=== PATIENT | male | born 1965 | race Caucasian/White ===

== ENCOUNTER 2020-07-26 07:43 | Inpatient (IN) | payer BC, OTHER ==
[2020-07-26] MEDS ORDERED: Fentanyl 100 MCG/2 ML VIAL ONE ×4 (08:19→18:19)
--- NOTE | 2020-07-26 08:39 | RAD ---
XR Pelvis AP STANDARD HISTORY: Fall, right hip pain FINDINGS: There is a fracture involving the neck of the right femur with associated foreshortening.
--- NOTE | 2020-07-26 08:40 | RAD ---
XR Hip Rt 2-3 View HISTORY: Fall, right hip pain FINDINGS: There is a fracture involving the neck of the right femur with associated foreshortening.
[2020-07-26] MEDS ORDERED: Ondansetron PF 4 MG/2 ML Vial ONE ×2 (08:52→11:24)
[2020-07-26 08:54] LABS: #Basophils 0.1 thou/uL (0.0-0.2); #Eosinphils 0.1 thou/uL (0.0-0.7); #Lymphocytes 1.2 thou/uL (1.20-3.40); #Monocytes 0.6 thou/uL (0.11-0.59); %Basophils 0.4 % (0.0-1.0); %Eosinophils 0.4 % (0.0-10.0); %Lymphocytes 8.1 % (21.0-51.0); %Monocytes 4.2 % (0.0-10.0); %Neutrophils 86.9 % (42.0-75.0); Hemoglobin 16.2 g/dL (14.0-18.0); Mean Corpuscular HGB CONC 33.1 g/dL (32.0-36.0); Mean Corpuscular Hemoglobin 33.4 pg (27.0-31.0); Mean Platelet Volume 7.1 fL (7.4-10.4); Platelet Count 244 thou/uL (130-400); RBC Distribution Width 12.3 % (11.5-14.5); Red Blood Cell (RBC) Count 4.86 mill/uL (4.70-6.10)
[2020-07-26 09:01] LABS: INR-International Normal Ratio 1.1; PTT 25.6 sec (22.9-36.1); Prothrombin Time 13.9 sec (12.0-14.7)
[2020-07-26] MEDS ORDERED: Vancomycin 1 GM/200 ML BAG ONE (09:06)
[2020-07-26 09:12] LABS: Acetaminophen Less than 6.0 mcg/mL (10.0-30.0); Alcohol 164 mg/dL (Less than 10); CK (CPK) 306 U/L (30-200); Salicylate Less than 8.0 mg/dL (15.0-30.0)
[2020-07-26 09:19] LABS: ALT (SGPT) 27 U/L (8-55); AST (SGOT) 20 U/L (5-34); Albumin 4.2 g/dL (3.5-5.0); Alkaline Phosphatase 76 U/L (40-110); Anion Gap 16 mmol/L (10-20); BUN (Urea Nitrogen) 11 mg/dL (8.4-25.7); Bilirubin, Total 0.2 mg/dL (0.2-1.2); Calc. Creatinine Clearance 0 mL/min (70-130); Calcium 8.3 mg/dL (7.8-10.44); Carbon Dioxide 20 mmol/L (22-29); Chloride 104 mmol/L (98-107); Globulin 2.5 g/dL (2.4-3.5); Glucose 139 mg/dL (70-105); Potassium 4.1 mmol/L (3.5-5.1); Protein, Total 6.7 g/dL (6.0-8.3); Sodium 136 mmol/L (136-145)
--- NOTE | 2020-07-26 09:30 | CON ---
DATE OF CONSULTATION: 07/26/2020 This is Leonie Thomas PA-C dictating a report for Jeff Heredia MD. REQUESTING PHYSICIAN: Trauma Services. CONSULTING PHYSICIAN: Dr. Jeff Heredia. REASON FOR CONSULTATION: Right hip fracture. HISTORY OF PRESENT ILLNESS: This is a 55-year-old male, who states he was drinking heavily last night after an 8-day stretch of working when he stumbled and fell at home, landing onto his right side. He was unable to ambulate. He was brought to our facility for further workup and evaluation. X-ray showed a displaced right femoral neck fracture. We have been consulted for this reason. Currently at bedside, the patient states that he is a normally very active individual. He works at a power plant. He denies any other injuries at the time of this fall. No head injury. No loss of consciousness. No numbness or tingling. Of note, he does state that he had a boil that appeared on his right thigh a couple of days ago. He has been squeezing it. He has not seen a physician for this and has not been on any antibiotics. PAST MEDICAL HISTORY: The patient denies. PAST SURGICAL HISTORY: Lumbar surgery with Dr. Santillan approximately 2 years ago. SOCIAL HISTORY: The patient lives at home with his . He is a 2 to 3 beers per day drinker and half a pack to a pack per day smoker for as long as he can remember. He denies any drug use. He ambulates independently and leads an active lifestyle. FAMILY HISTORY: Reviewed and noncontributory. REVIEW OF SYSTEMS: Ten-point review of systems conducted and otherwise negative except for stated above. PHYSICAL EXAMINATION: VITAL SIGNS: Shows current vital signs including blood pressure 122/79, pulse of 86, respiratory rate of 17, temperature of 97.9, O2 saturation of 95% on room air. GENERAL: The patient is awake and alert. He answers all questions appropriately. He is comfortable at this time, lying on stretcher in the ER. HEENT: Head is normocephalic and atraumatic. He does have poor dentition. NECK: Supple. Trachea midline. Breathing is nonlabored. EXTREMITIES: Evaluation of his lower extremities shows his right lower extremity be held in extension at the hip and the knee. He is able to move his toes. He has a palpable dorsalis pedis pulse. There is a skin abscess noted on the lateral thigh measuring approximately 15 mm x 15 mm with purulent drainage and surrounding erythema. This is covered by a Band-Aid. Left lower extremity is held in flexion at the hip and flexion at the knee. He is able to actively move both these joints. Distal neurovascular status intact. Evaluation of bilateral upper extremity shows an atraumatic exam of bilateral upper extremities. DIAGNOSTIC DATA: Radiographic imaging reviewed today including AP pelvis as well as right hip x-rays shows evidence of a displaced femoral neck fracture. ASSESSMENT: Right displaced femoral neck fracture. PLAN: At this time, the patient states he has been n.p.o. since about 4 a.m. when he had his last beer. We would like to ideally operate on him later today. We will see if the operating room allows for this. We will keep him n.p.o. With regard to this skin abscess on his right thigh, there is concern due to its location and the close proximity of what will be our surgical wound. We will plan for I&D today with cultures of this abscess. We will plan to treat him as an inpatient with antibiotics before going forward with surgical hip implants. Risks, benefits, and alternatives of surgery discussed with the patient today. He verbalized understanding and is amenable to this. Job ID: [id number] [facility]
[2020-07-26] MEDS ORDERED: Ketorolac Tromethamine 30 MG/ML VIAL ONE (09:42)
--- NOTE | 2020-07-26 10:42 | HP ---
REQUESTING PHYSICIAN: Dr. Carbajal. ATTENDING SURGEON: Dr. Tiwari. CONSULTATIONS: Orthopedics, Dr. Heredia. HISTORY OF PRESENT ILLNESS: The patient is a 55-year-old man who was brought by ground EMS to the emergency department after having a ground level fall approximately 4:00 a.m. this morning. He had been drinking and fell. He believes it may have been as high as 5 feet, but he is unsure. He denies head injury or loss of consciousness. EMS and the ER report that his verified that he did not lose consciousness, only that he had severe right hip pain. The patient was brought to the emergency department, underwent evaluation and examination and was noted to have a right intertrochanteric femur fracture. Upon secondary examination with Orthopedics, it was noted that the patient has a cutaneous abscess on his right proximal thigh very close to his future surgical site. After discussion with Dr. Heredia, he decided that they will take the patient for formal irrigation and debridement in the operating room today, begin antibiotics and when this site looks good, they will proceed with his orthopedic procedure. ALLERGIES: NONE. CURRENT MEDICATIONS: None. PAST MEDICAL HISTORY: Gastroesophageal reflux disease and hyperlipidemia. PAST SURGICAL HISTORY: "Back surgery." SOCIAL HISTORY: The patient lives at home with family. He smokes approximately half a pack of cigarettes per day. Denies drug use and drinks every day including today he drank approximately 18 beers. REVIEW OF SYSTEMS: A 10-point review of systems is negative as otherwise stated. PHYSICAL EXAMINATION: VITAL SIGNS: Blood pressure 129/87, heart rate 98, respirations 24, oxygen saturation is 95% on room air, and temperature is 97.9. GENERAL: The patient is resting comfortably in bed. He was asleep when we entered the room. He was examined at the same time with Orthopedics. He easily awakened to verbal stimuli. Follows all commands. Mansfield Coma Scale is 14, -1 for eye opening. HEENT: Head is normocephalic and atraumatic. Eyes, extraocular motion is intact. PERRLA bilaterally. Ears are atraumatic without discharge. Nose is atraumatic without discharge. Oropharynx is clear. NECK: Nontender. Trachea is midline with no JVD. CHEST: Clear to auscultation with good inspiratory and expiratory effort. HEART: Regular rate and rhythm. ABDOMEN: Soft, flat, and nontender with active bowel sounds. Pelvis is stable with tenderness to palpation to the right hip consistent with his fracture. EXTREMITIES: Neurovascularly intact x4. Right lower extremity is held slightly flexed with inward rotation. The right lateral thigh has approximately 10 cm circular area of erythema with a central necrotic area with some scant purulent drainage noted. BACK: By report is atraumatic and nontender. LABORATORY FINDINGS: White blood cell count 15.0, hemoglobin 16.2, hematocrit 49.1, platelets 244. Sodium 136, potassium 4.1, chloride 104, CO2 of 20, BUN 11, creatinine 0.88, glucose 139, CK 306. Troponin less than 0.010. LFTs are unremarkable. INR is 1.1. Blood alcohol is 164. RADIOGRAPHIC REPORTS: AP pelvis shows a femoral neck fracture on the right. Views of the right hip again demonstrate a femoral neck fracture with associated foreshortening. ASSESSMENT AND PLAN: 1. Status post mechanical fall. 2. Acute alcohol intoxication. 3. Right femoral neck fracture. 4. Right thigh cutaneous abscess. 5. Pain secondary to above. Plan will be to admit the patient to the surgical floor. He will be kept n.p.o. for his irrigation and debridement today. Per discussion with Dr. Heredia, we will hold his antibiotics at this time. The patient did receive 1 g of Ancef this morning. Postoperatively, we will follow his culture results. We have also had blood cultures drawn in the emergency department. We will do pain control, pulmonary toilet, gastritis and mechanical VTE prophylaxis. We will begin physical therapy once ortho clears him to ambulate, which is most likely going to be postoperative from his hemiarthroplasty. The evaluation, examination, laboratory, and radiographic signs discussed with Dr. Tiwari at the time of this dictation. Job ID: [id number]
[2020-07-26] MEDS ORDERED: Dexamethasone 20 MG/5 ML VIAL ONE (11:24)
[2020-07-26] MEDS ORDERED: ePHEDrine 50 MG/ML VIAL ONE (11:24)
[2020-07-26] MEDS ORDERED: PROPOFOL 200 MG/20 ML VIAL ONE (11:24)
[2020-07-26] MEDS ORDERED: Lidocaine 1% PF 5 ML VIAL ONE (11:24)
[2020-07-26 11:25] LABS: SARS-CoV-2 NAA Rapid Test Not Detected (NotDetected)
[2020-07-26] MEDS ORDERED: Ondansetron ODT 4 MG TAB SL PRN (11:30)
[2020-07-26] MEDS ORDERED: Ondansetron PF 4 MG/2 ML Vial IVP PRN ×2 (11:30→12:49)
[2020-07-26] MEDS ORDERED: Ondansetron ODT 4 MG TAB PO PRN (12:49)
[2020-07-26] MEDS ORDERED: Cyclobenzaprine 10 MG TAB PO PRN (12:49)
[2020-07-26] MEDS ORDERED: Dextrose 5% in Water 1,000 ML IV PRN (12:49)
[2020-07-26] MEDS ORDERED: Promethazine HCl 25 MG/ML VIAL IM PRN ×2 (12:49→18:09)
[2020-07-26] MEDS ORDERED: traMADol HCl 50 MG TAB PO PRN (12:49)
[2020-07-26] MEDS ORDERED: Dextrose 50% Abboject 50 ML SYRINGE SLOW IVP PRN (12:49)
[2020-07-26] MEDS ORDERED: Morphine 2 MG/ML VIAL SLOW IVP PRN (12:49)
[2020-07-26] MEDS ORDERED: Ibuprofen 800 MG TAB PO SCH (12:49)
[2020-07-26] MEDS ORDERED: hydrALAZINE 20 MG/ML VIAL SLOW IVP PRN (12:49)
[2020-07-26] MEDS ORDERED: Famotidine/PF 20 mg/2ml Vial SLOW IVP SCH (13:15)
[2020-07-26] MEDS: Oxazepam 10 MG CAP PO SCH ×2 (13:39→20:44)
[2020-07-26] MEDS: Acetaminophen 500 MG TAB PO SCH ×2 (13:39→18:53)
[2020-07-26] MEDS: Sodium Chloride 0.9% 1,000 ML IV SCH ×2 (13:39→18:55)
[2020-07-26] MEDS ORDERED: CEFAZOLIN 2 GM in Premix Bag 1 BAG IVPB SCH (17:00)
[2020-07-26] MEDS ORDERED: Ondansetron HCl/PF 4 MG/2 ML Vial IVP PRN (18:09)
[2020-07-26] MEDS ORDERED: Promethazine HCl 25 MG/ML VIAL SLOW IVP PRN (18:09)
[2020-07-26] MEDS: Piperacillin/Tazobactam 3.375 GM in Sodium Chloride 0.9% 100 ML IVPB SCH (18:50)
[2020-07-26] MEDS: Vancomycin HCl 750 MG in Sodium Chloride 0.9% 250 ML 250 ML IVPB SCH (20:43)
[2020-07-26] MEDS: Ibuprofen 600 MG TAB PO SCH (20:43)
[2020-07-26] MEDS: Famotidine/PF 20 mg/2ml Vial SLOW IVP SCH (20:43)
[2020-07-26] MEDS ORDERED: Vancomycin HCl 1.5 GM in Sodium Chloride 0.9% 250 ML 300 ML IVPB SCH (21:00)
[2020-07-27] MEDS: Acetaminophen 325 MG TAB PO SCH ×4 (00:30→18:18)
[2020-07-27] MEDS: Piperacillin/Tazobactam 3.375 GM in Sodium Chloride 0.9% 100 ML IVPB SCH ×4 (00:46→18:18)
[2020-07-27] MEDS: Acetaminophen 500 MG TAB PO SCH (00:47)
[2020-07-27] MEDS: traMADol HCl 50 MG TAB PO PRN (02:33)
[2020-07-27 05:11] LABS: #Lymphocytes 1.3 thou/uL (1.20-3.40); #Neutrophils 8.5 thou/uL (1.40-6.50); %Basophils 0.3 % (0.0-1.0); %Eosinophils 0.2 % (0.0-10.0); %Monocytes 9.1 % (0.0-10.0); %Neutrophils 78.3 % (42.0-75.0); Hemoglobin 14.9 g/dL (14.0-18.0); Mean Corpuscular HGB CONC 33.9 g/dL (32.0-36.0); Mean Corpuscular Hemoglobin 34.2 pg (27.0-31.0); Mean Platelet Volume 7.1 fL (7.4-10.4); Platelet Count 217 thou/uL (130-400); RBC Distribution Width 12.3 % (11.5-14.5); Red Blood Cell (RBC) Count 4.38 mill/uL (4.70-6.10); White Blood Cell (WBC) Count 10.8 thou/uL (4.8-10.8)
[2020-07-27 05:34] LABS: Anion Gap 12 mmol/L (10-20); BUN (Urea Nitrogen) 9 mg/dL (8.4-25.7); Calc. Creatinine Clearance 71 mL/min (70-130); Calcium 8.1 mg/dL (7.8-10.44); Carbon Dioxide 21 mmol/L (22-29); Chloride 108 mmol/L (98-107); Glucose 119 mg/dL (70-105); Potassium 4.3 mmol/L (3.5-5.1); Sodium 137 mmol/L (136-145)
[2020-07-27] MEDS: Ibuprofen 600 MG TAB PO SCH ×3 (05:51→20:17)
[2020-07-27] MEDS: Oxazepam 10 MG CAP PO SCH ×2 (05:51→13:11)
[2020-07-27] MEDS: Folic Acid 1 MG TAB PO SCH (08:37)
[2020-07-27] MEDS: Thiamine 100 MG TAB PO SCH (08:37)
[2020-07-27] MEDS: Famotidine/PF 20 mg/2ml Vial SLOW IVP SCH ×2 (08:38→20:17)
[2020-07-27] MEDS: Vancomycin HCl 750 MG in Sodium Chloride 0.9% 250 ML 250 ML IVPB SCH ×2 (09:04→20:17)
--- NOTE | 2020-07-27 10:18 | OP ---
DATE OF PROCEDURE: 07/26/2020 PREOPERATIVE DIAGNOSIS: 1. Right displaced femoral neck fracture. 2. Right lateral thigh subcutaneous abscess. POSTOPERATIVE DIAGNOSES: 1. Right displaced femoral neck fracture. 2. Right lateral thigh subcutaneous abscess. PROCEDURE PERFORMED: Incision and drainage of right lateral thigh abscess. ANESTHESIA: General. ESTIMATED BLOOD LOSS: 5 mL. COMPLICATIONS: None. DRAINS: None. SPECIMEN: Swab x2 as well as tissue sample for Gram stain, culture, and sensitivity. OUTCOME: Satisfactory. INDICATIONS: The patient is a 55-year-old gentleman, who sustained a fall, fracturing his right femoral neck. This fall occurring after alcohol consumption. Upon presentation to the emergency room and workup, he was found to have a displaced subcapital femoral neck fracture consistent with a Garden IV type injury as well as an abscess that was subcutaneous by appearance directly at the level of where the incision would be for stabilization of this femoral neck fracture. Given this abscess and surrounding erythema and the fact that it had not been treated whatsoever, it was felt that the patient could not undergo hardware placement due to the excessively high risk for infection and as such, the patient is now brought to the operating room for incision and drainage to be in treatment of this skin abscess in hopes of allowing us to then proceed with a staged procedure for the femoral neck fracture. Informed consent has been obtained. I believe all questions have been answered. DESCRIPTION OF PROCEDURE: The patient was brought to the operating room and a time-out performed followed by induction of general anesthesia. Next, the patient was positioned in a left lateral decubitus position. A sterile prep and drape were performed in the right lateral thigh. At this time, the patient was found to have an abscess with some purulent material draining from it. This abscess was just distal to the greater trochanter at the lateral aspect of the thigh. Next, a scalp was used to incise this abscess cavity. It did appear to be limited to the subcutaneous fat layer as there was no tracking deeper. Once the abscess cavity was entered, swabs were taken and sent for Gram stain, culture, and sensitivity, and then some tissue from the center of the abscess cavity was also sent for Gram stain, culture, and sensitivity. Next, the scalp was used to incise all of the obviously involved and necrotic skin. This resulted in about a centimeter and a half round area of skin deficit. This extended down into the subcutaneous fat, but not to the level of the fascia. At the completion of this debridement, all nonviable tissue was sharply debrided with scalpel. The wound was then irrigated with 3 L of normal saline using Pulsavac. With completion of this, it was packed with a damp to dry gauze dressing, and then the patient was transferred to recovery room in stable condition. There were no complications. The patient tolerated the procedure well and as soon as his lab values all normalized and his wound appears free of active infection, we will discuss proceeding with treatment for the femoral neck fracture. Job ID: [id number]
[2020-07-27] MEDS ORDERED: FLU VACC QS2020-21(6MOS UP)/PF 60 MCG/0.5 ML SYRINGE IM ONE (12:45)
--- NOTE | 2020-07-27 19:38 | PRG ---
DATE OF SERVICE: 07/27/2020 SUBJECTIVE: The patient is currently on the surgical floor. He is hospital day 2 status post ground level fall when he sustained a displaced right femoral neck fracture. He also was noted to have an abscess on that side, went to the operating room yesterday and he is postop day 1 from irrigation and debridement of that abscess. Due to the location of the abscess, that has precluded orthopedics from doing his hemiarthroplasty. Orthopedics is also waiting for input from Infectious Disease regarding the bacteria as he will most certainly have Orthopedic implant in close proximity, so they will be working on antibiotic therapy and timing. Otherwise, the patient did well overnight, had no issues. His pain is controlled. He is tolerating a diet this morning. PHYSICAL EXAMINATION: VITAL SIGNS: Temperature is 97.9, heart rate 82, blood pressure 126/80, respirations 18, oxygen saturation 94% on room air. GENERAL: The patient is resting comfortably in bed. He is awake, alert, conversant, appropriate. Sheri Coma Scale is 15. HEENT: Unremarkable. LUNGS: Clear to auscultation bilaterally. HEART: Regular rate and rhythm. ABDOMEN: Soft, flat, nontender with active bowel sounds. EXTREMITIES: Neurovascularly intact x4. Right proximal thigh has a clean, dry, and intact dressing on it. The wound care team is going to see him today. LABORATORY FINDINGS: White blood cell count 10.8, hemoglobin 14.9, hematocrit 44.1, platelets 217. Sodium 137, potassium 4.3, chloride 108, CO2 of 21, BUN 9, creatinine 0.80, glucose 119. There are no radiographs to review this morning. ASSESSMENT: 1. Status post ground level fall. 2. Right displaced femoral neck fracture. 3. Right thigh cutaneous abscess, status post irrigation and debridement. PLAN: Plan will be to continue supportive care. Antibiotics to be guided by culture results, and await surgical decision for timing of the patient's orthopedics procedure. Job ID: [id number]
[2020-07-28] MEDS: Piperacillin/Tazobactam 3.375 GM in Sodium Chloride 0.9% 100 ML IVPB SCH ×4 (00:05→18:12)
[2020-07-28] MEDS: Oxazepam 10 MG CAP PO SCH ×4 (00:05→21:33)
[2020-07-28] MEDS: Acetaminophen 325 MG TAB PO SCH ×4 (02:03→18:11)
[2020-07-28] MEDS: Ibuprofen 600 MG TAB PO SCH ×3 (05:39→21:33)
[2020-07-28] MEDS: Thiamine 100 MG TAB PO SCH (08:21)
[2020-07-28] MEDS: Folic Acid 1 MG TAB PO SCH (08:21)
[2020-07-28] MEDS: Famotidine/PF 20 mg/2ml Vial SLOW IVP SCH ×2 (08:21→21:32)
[2020-07-28 08:36] LABS: #Basophils 0.1 thou/uL (0.0-0.2); #Eosinphils 0.2 thou/uL (0.0-0.7); #Lymphocytes 2.4 thou/uL (1.20-3.40); #Monocytes 0.9 thou/uL (0.11-0.59); #Neutrophils 5.4 thou/uL (1.40-6.50); %Basophils 0.9 % (0.0-1.0); %Eosinophils 1.8 % (0.0-10.0); %Monocytes 9.5 % (0.0-10.0); %Neutrophils 60.8 % (42.0-75.0); Hemoglobin 14.4 g/dL (14.0-18.0); Mean Corpuscular HGB CONC 33.9 g/dL (32.0-36.0); Mean Corpuscular Hemoglobin 34.3 pg (27.0-31.0); Platelet Count 212 thou/uL (130-400); RBC Distribution Width 12.2 % (11.5-14.5); White Blood Cell (WBC) Count 8.9 thou/uL (4.8-10.8)
[2020-07-28] MEDS: Vancomycin HCl 750 MG in Sodium Chloride 0.9% 250 ML 250 ML IVPB SCH ×2 (09:26→21:35)
[2020-07-28 13:25] VITALS: BMI 29.9
--- NOTE | 2020-07-28 13:57 | PRG ---
DATE OF SERVICE: 07/28/2020 SUBJECTIVE: The patient is a 55-year-old man, who is hospital day 2, status post ground level fall, which caused a displaced right femoral neck fracture. He is postop day 2 from irrigation and debridement of abscess on his right side. Because of the location of his abscess, it delayed Orthopedic Surgery from doing his hemiarthroplasty. Culture of the right hip abscess is pending and blood culture showed no growth to date. The patient says he is doing well overall. Pain is controlled when still, but otherwise he says his pain is 5/10. He is tolerating his diet. PHYSICAL EXAMINATION: VITAL SIGNS: Temperature is 98.6, heart rate 69, respiratory rate 18, O2 sats 95% on room air, blood pressure 136/89. GENERAL: The patient is resting comfortably in bed. He is awake, alert, conversant, appropriate. GCS is 15. HEENT: Unremarkable. LUNGS: Clear to auscultation bilaterally. HEART: Regular rate and rhythm. ABDOMEN: Soft, flat, nontender with active bowel sounds. EXTREMITIES: Neurovascularly intact x4. Proximal right thigh is clean, dry, and intact, dressing on it. Wound Care Team has been following up with him. LABORATORY FINDINGS: White blood cell count of 8.9, hemoglobin of 14.4, hematocrit of 42.4. CRP 3.15. Metabolic panel is not done today. There are no radiographs reviewed this morning. ASSESSMENT: 1. Status post ground level fall. 2. Right displaced femoral neck fracture. 3. Right thigh cutaneous abscess, status post irrigation and debridement. PLAN: Plan will be to continue supportive care. Antibiotics will be guided by culture results. The plan is for the patient to go to the OR tomorrow for his hemiarthroplasty. NPO at midnight. Continue pain control. The patient was seen and discussed with Dr. Giron, who agrees with the above documentation and plan. Job ID: [id number] [facility]
[2020-07-29] MEDS: Acetaminophen 325 MG TAB PO SCH ×4 (00:36→17:45)
[2020-07-29] MEDS: Ibuprofen 600 MG TAB PO SCH ×3 (04:24→20:28)
[2020-07-29 05:57] LABS: #Basophils 0.1 thou/uL (0.0-0.2); #Eosinphils 0.2 thou/uL (0.0-0.7); #Monocytes 0.9 thou/uL (0.11-0.59); #Neutrophils 4.8 thou/uL (1.40-6.50); %Eosinophils 2.3 % (0.0-10.0); %Lymphocytes 33.5 % (21.0-51.0); %Neutrophils 53.3 % (42.0-75.0); Hemoglobin 14.9 g/dL (14.0-18.0); Mean Corpuscular HGB CONC 33.7 g/dL (32.0-36.0); Mean Corpuscular Hemoglobin 34.8 pg (27.0-31.0); Mean Platelet Volume 7.3 fL (7.4-10.4); Platelet Count 232 thou/uL (130-400); Red Blood Cell (RBC) Count 4.28 mill/uL (4.70-6.10); White Blood Cell (WBC) Count 9.1 thou/uL (4.8-10.8)
[2020-07-29] MEDS: Oxazepam 10 MG CAP PO SCH ×3 (06:13→22:11)
[2020-07-29] MEDS ORDERED: Polyethylene Glycol 3350 17 GM Packet PO SCH (09:00)
[2020-07-29] MEDS: Famotidine/PF 20 mg/2ml Vial SLOW IVP SCH ×2 (09:03→20:28)
[2020-07-29] MEDS: Thiamine 100 MG TAB PO SCH (09:03)
[2020-07-29] MEDS: Folic Acid 1 MG TAB PO SCH (09:03)
[2020-07-29] MEDS ORDERED: ePHEDrine 50 MG/ML VIAL ONE (10:27)
[2020-07-29] MEDS ORDERED: Dexamethasone 20 MG/5 ML VIAL ONE (10:27)
[2020-07-29] MEDS ORDERED: PROPOFOL 200 MG/20 ML VIAL ONE (10:27)
[2020-07-29] MEDS ORDERED: Lidocaine 1% PF 5 ML VIAL ONE (10:27)
[2020-07-29] MEDS ORDERED: Ondansetron PF 4 MG/2 ML Vial ONE (10:27)
[2020-07-29] MEDS ORDERED: CEFAZOLIN 2 GM in Premix Bag 1 BAG IVPB SCH (12:00)
[2020-07-29] MEDS ORDERED: Fentanyl 100 MCG/2 ML VIAL ONE ×3 (14:08→15:49)
[2020-07-29] MEDS ORDERED: Midazolam HCl 2 mg/2 ml Vial ONE (14:08)
[2020-07-29] MEDS ORDERED: HYDROmorphone 2 MG/ML VIAL SLOW IVP PRN (15:36)
[2020-07-29] MEDS ORDERED: Ondansetron HCl/PF 4 MG/2 ML Vial IVP PRN (15:36)
[2020-07-29] MEDS ORDERED: Meperidine HCl/PF 25 MG/ML VIAL SLOW IVP PRN ×2 (15:36)
[2020-07-29] MEDS ORDERED: Promethazine HCl 25 MG/ML VIAL IM PRN (15:36)
[2020-07-29] MEDS ORDERED: Promethazine HCl 25 MG/ML VIAL SLOW IVP PRN (15:36)
--- NOTE | 2020-07-29 15:55 | RAD ---
Exam: XR Hip Rt 2-3 View HISTORY: Pinning right hip. COMPARISON: 07/26/2020 FINDINGS/IMPRESSION: 3 long screws now transfix the previously noted subcapital right femoral neck fracture. There is impr ovement in alignment of the fracture fragments. Correlation with intraoperative findings is recommended. Fluoroscopy: Time-79.4 seconds Dose-33 mGy
--- NOTE | 2020-07-29 15:59 | OP ---
DATE OF PROCEDURE: 07/29/2020 OPERATION PERFORMED: Percutaneous screw fixation of right femoral neck fracture. PREOPERATIVE DIAGNOSIS: Displaced right femoral neck fracture. POSTOPERATIVE DIAGNOSIS: Displaced right femoral neck fracture. COMPLICATIONS: None. ESTIMATED BLOOD LOSS: Minimal. IMPLANTS: Three 7.3-mm cannulated screws from [employer] were utilized. DESCRIPTION OF PROCEDURE: Mr. Watson was identified in the preoperative holding area. His correct extremity was marked. He was carried to the operating room. He was positioned supine. General anesthesia was induced. A multidisciplinary time-out was performed. The right lower extremity was prepped and draped in sterile fashion. We began the procedure with intraoperative evaluation of the hip under x-ray. We pulled traction and rotated the leg. We reduced the fracture into an anatomic position. At this point, we made a small incision over the lateral thigh, avoiding the patient's previously opened abscess. We made a small approach down to the bone. We inserted a guidewire in the inferior position of the femoral neck. This was seated appropriately. We then placed a more superior guidewire and a third more superior guidewire in an inverted triangle pattern. At this point, we measured our guidewires. We overdrilled the guidewires and then we placed three 7.3-mm cannulated screws into the femoral neck. These were watched carefully with x-rays. We placed these. There was no complication. We irrigated the wound and closed in layers. A sterile dressing was applied. The patient was taken to the recovery room in good condition. Job ID: [id number]
[2020-07-29] MEDS: traMADol HCl 50 MG TAB PO PRN (18:19)
[2020-07-29] MEDS: Senokot S 8.6-50 MG TAB PO SCH (20:28)
[2020-07-30] MEDS ORDERED: Vancomycin 1.5 GRAM/300 ML BAG 1.5 GM in Premix Bag 1 BAG IVPB SCH (01:00)
[2020-07-30] MEDS: Acetaminophen 325 MG TAB PO SCH ×3 (01:10→14:02)
[2020-07-30 05:13] LABS: #Basophils 0.1 thou/uL (0.0-0.2); #Eosinphils 0.1 thou/uL (0.0-0.7); #Lymphocytes 2.2 thou/uL (1.20-3.40); #Monocytes 0.8 thou/uL (0.11-0.59); #Neutrophils 8.3 thou/uL (1.40-6.50); %Basophils 0.6 % (0.0-1.0); %Eosinophils 0.7 % (0.0-10.0); %Lymphocytes 19.1 % (21.0-51.0); %Monocytes 7.2 % (0.0-10.0); %Neutrophils 72.4 % (42.0-75.0); Hemoglobin 15.8 g/dL (14.0-18.0); Mean Corpuscular HGB CONC 33.9 g/dL (32.0-36.0); Mean Corpuscular Hemoglobin 34.1 pg (27.0-31.0); Platelet Count 262 thou/uL (130-400); RBC Distribution Width 11.8 % (11.5-14.5); Red Blood Cell (RBC) Count 4.64 mill/uL (4.70-6.10); White Blood Cell (WBC) Count 11.4 thou/uL (4.8-10.8)
[2020-07-30 05:55] LABS: Phosphorus 4.2 mg/dL (2.3-4.7)
[2020-07-30 05:58] LABS: ALT (SGPT) 22 U/L (8-55); AST (SGOT) 19 U/L (5-34); Alkaline Phosphatase 69 U/L (40-110); Anion Gap 14 mmol/L (10-20); BUN (Urea Nitrogen) 10 mg/dL (8.4-25.7); Bilirubin, Total 0.7 mg/dL (0.2-1.2); Calc. Creatinine Clearance 150 mL/min (70-130); Calcium 8.9 mg/dL (7.8-10.44); Carbon Dioxide 24 mmol/L (22-29); Chloride 103 mmol/L (98-107); Globulin 2.9 g/dL (2.4-3.5); Glucose 111 mg/dL (70-105); Magnesium 2.2 mg/dL (1.6-2.6); Potassium 3.9 mmol/L (3.5-5.1); Protein, Total 6.9 g/dL (6.0-8.3); Sodium 137 mmol/L (136-145)
[2020-07-30] MEDS: Ibuprofen 600 MG TAB PO SCH ×2 (06:28→12:12)
[2020-07-30] MEDS: Oxazepam 10 MG CAP PO SCH ×2 (06:28→14:02)
--- NOTE | 2020-07-30 06:37 | PRG ---
DATE OF SERVICE: 07/29/2020 SUBJECTIVE: The patient is a 55-year-old man, who is hospital day 3, status post ground level fall, which caused a displaced right femoral neck fracture. He is postop day 3 from irrigation and debridement of abscess on his right side. Because of the location of his abscess, it delayed Orthopedic Surgery from doing his hemiarthroplasty. Culture of the right hip abscess is pending and blood culture shows no growth to date. The patient states he is doing well overall. Pain is controlled and he is moving around. He is tolerating his diet, but has been n.p.o. since midnight for surgery today. The patient has not had a bowel movement in 3 days. OBJECTIVE: VITAL SIGNS: Show temperature of 97.9, pulse 64, respiratory rate 16, O2 sats 96% on room air, blood pressure 132/81. GENERAL: The patient is resting comfortably in bed. He is awake, alert, conversant, appropriate. GCS is 15. HEENT: Unremarkable. LUNGS: Clear to auscultation bilaterally. HEART: Regular rate and rhythm. ABDOMEN: Soft, flat, nontender with active bowel sounds. EXTREMITIES: Neurovascularly intact x4. Proximal right thigh is clean, dry, and intact, and wound care is working with him at time of interview. LABORATORY FINDINGS: White blood cell count of 9.1, hemoglobin of 14.9, hematocrit 44.2. No new radiographic imaging to review. ASSESSMENT: 1. Status post ground level fall. 2. Right displaced femoral neck fracture. 3. Right thigh cutaneous abscess, status post irrigation and debridement. PLAN: We will continue with supportive care. Antibiotics will be guided by culture results. The patient is to go to surgery today for with Orthopedic Surgery around 2:00 p.m. We will follow up with operative note and recommendations. Continue with pain control. The patient was seen and discussed with Dr. Giron, who agrees with the above documentation and plan. Job ID: [id number] [facility]
[2020-07-30] MEDS: Senokot S 8.6-50 MG TAB PO SCH (08:28)
[2020-07-30] MEDS: Folic Acid 1 MG TAB PO SCH (08:29)
[2020-07-30] MEDS: Famotidine/PF 20 mg/2ml Vial SLOW IVP SCH (08:29)
[2020-07-30] MEDS: Thiamine 100 MG TAB PO SCH (08:29)
[2020-07-30] MEDS ORDERED: Famotidine 20 MG TAB PO SCH (09:00)
[2020-07-30] MEDS ORDERED: Polyethylene Glycol 3350 17 GM Packet PO SCH (09:00)
[2020-07-30 09:40] LABS: Fungus Stain Final report (.)
[2020-07-30 09:40] LABS: Fungus Stain Final report (.)
[2020-07-30 13:17] VITALS: BP 127/70; TEMP 98.1
[2020-07-30] MEDS ORDERED: Cephalexin 250 MG CAP PO SCH (21:00)
--- NOTE | 2020-07-31 12:36 | DIS ---
DATE OF ADMISSION: 07/26/2020 DATE OF DISCHARGE: 07/30/2020 RESIDENT: Susan Harris MD, PGY-1, scribing for the Trauma Team. ADMITTING ATTENDING: Dr. Giron CONSULTS: Orthopedics, PT and OT, Wound Care, Case management. PROCEDURES: Irrigation and debridement of right hip abscess, screw fixation of right femoral neck fracture. PRIMARY DIAGNOSIS: Displaced right femoral neck fracture SECONDARY DIAGNOSIS: right hip abscess, likely secondary to spider bite DISCHARGE MEDICATIONS: 1. Keflex 500 mg p.o. q.12 hours for five days. 2. Tramadol 50 mg p.o. q.6 hours as needed for seven days for breakthrough pain. HISTORY OF PRESENT ILLNESS/HOSPITAL COURSE: The patient is a 55-year-old man, who is status post ground level fall and suffered a displaced right femoral neck fracture. He was noted to have a right-sided hip abscess, which delayed orthopedic surgery from being able to repair his hip. The patient underwent an irrigation and debridement of that abscess on his right side on 07/26/2020, and once deemed ready by Orthopedics, the patient went back on 07/29/2020, for percutaneous screw fixation of right femoral neck fracture. The patient's pain was well controlled after the procedure. He worked well with Physical Therapy and tolerated his diet and vitals remained stable along with lab values. Patient was seen on the day of discharge with Dr. Giron who agrees with documentation and plan. OBJECTIVE: VITAL SIGNS: Temperature 98.3, pulse 87, respiratory rate 14, O2 saturation 95, BP 129/72. LABORATORY VALUES: White blood cell count 11.4. All electrolytes and kidney function within normal ranges. Hemoglobin 15.8. There are no new radiographic images to be reviewed. PHYSICAL EXAMINATION: GENERAL: The patient is sitting up in chair, alert and oriented, in no acute distress. CARDIAC: Regular rate and rhythm. RESPIRATORY: No respiratory distress. GI: Soft abdomen with active bowel sounds. EXTREMITIES: The patient has a clean, dry, and intact dressing over incision site on the right side. NEUROLOGIC: The patient is neurovascularly intact with GCS of 15. DISPOSITION: Stable. DISCHARGE INSTRUCTIONS: 1. Location: Home. 2. Diet: Regular diet. 3. Activity: As tolerated with orthopedic limitations for toe-touch weightbearing of right leg. 4. Followup: The patient will be doing home physical therapy and will have a walker to use at home. He is scheduled to follow up with Dr. Stewart in 10 days. He does not need to follow up with Dr. Giron, but feel free to follow up with questions. Job ID: [id number] [facility]
== END 2020-07-30 14:13 | disposition home or self-care (01) | DRG 481 ==
LOC: ERS 07:43 → SURG A 09:06
PROVIDERS: ADMIT Surgery; ATTEND Surgery
PROC: 0J9L0ZZ Drainage of Right Upper Leg Subcutaneous Tissue and Fascia, Open Approach (ICD-10-PCS; principal; 2020-07-26)
PROC: 0QS634Z Reposition Right Upper Femur with Internal Fixation Device, Percutaneous Approach (ICD-10-PCS; 2020-07-29)
DX: S72.011A Unspecified intracapsular fracture of right femur, initial encounter for closed fracture (principal); L02.415 Cutaneous abscess of right lower limb; K21.9 Gastro-esophageal reflux disease without esophagitis; E78.00 Pure hypercholesterolemia, unspecified; F17.210 Nicotine dependence, cigarettes, uncomplicated; F10.129 Alcohol abuse with intoxication, unspecified; T63.301A Toxic effect of unspecified spider venom, accidental (unintentional), initial encounter; W18.30XA Fall on same level, unspecified, initial encounter
CPT/HCPCS: 36415; 72170; 76000; 80048; 80053; 80307; 82550; 83735; 84100; 84484; 85025; 85610; 85652; 85730; 86140; 87040; 87070; 87076; 87102; 87205; 87206; 93005; 96365; 96375; 96376; C1713; C1769; G0390; J0690; J1100; J1885; J2250; J2405; J2543; J2704; J3010; J3370; J3490; J7050; S0028; U0002

== ENCOUNTER 2020-10-14 10:45 | Inpatient (IN) | payer BC ==
[2020-10-17] MEDS ORDERED: Midazolam HCl 2 mg/2 ml Vial ONE (07:00)
[2020-10-17] MEDS ORDERED: Fentanyl 100 MCG/2 ML VIAL ONE ×5 (07:00→09:46)
[2020-10-17] MEDS ORDERED: Famotidine/PF 20 mg/2ml Vial ONE (07:29)
[2020-10-17] MEDS ORDERED: Bupivacaine 0.25% HCL 30 ML VIAL ONE (07:29)
[2020-10-17] MEDS ORDERED: Acetaminophen 500 MG TAB PO PRN (07:49)
[2020-10-17] MEDS ORDERED: Naloxone HCl 0.4 mg/ml Vial IV PRN (08:00)
[2020-10-17] MEDS ORDERED: Promethazine HCl 25 MG SUPP PR PRN (08:00)
[2020-10-17] MEDS ORDERED: diphenhydrAMINE 50 MG/ML VIAL IVP PRN (08:00)
[2020-10-17] MEDS ORDERED: Zolpidem Tartrate 5 MG TAB PO PRN (08:00)
[2020-10-17] MEDS ORDERED: Naloxone HCl 0.4 mg/ml Vial IVP PRN (08:00)
[2020-10-17] MEDS ORDERED: Fentanyl 5 mcg/Bup 0.075% Cadd 100 ML EPIDURAL SCH (08:00)
[2020-10-17] MEDS ORDERED: diphenhydrAMINE 25 MG CAP PO PRN (08:00)
[2020-10-17] MEDS ORDERED: Ondansetron PF 4 MG/2 ML Vial IVP PRN (08:00)
[2020-10-17] MEDS ORDERED: Bupivacaine 0.25% 10 ML VIAL EPIDURAL PRN (08:00)
[2020-10-17] MEDS ORDERED: Hydrocerin (Eucerin) Cream 120 gm Jar TOP PRN (08:00)
[2020-10-17] MEDS ORDERED: HYDROcodone/Acetaminophen 5/325 mg Tablet PO PRN (08:00)
[2020-10-17] MEDS ORDERED: traMADol HCl 50 MG TAB PO PRN ×2 (08:00)
[2020-10-17] MEDS ORDERED: diphenhydrAMINE 50 MG/ML VIAL IM PRN (08:00)
[2020-10-17] MEDS ORDERED: Promethazine HCl 25 MG/ML VIAL IM PRN (08:00)
[2020-10-17] MEDS ORDERED: PHENYLEPHRINE-NS 100 MCG/ML 10 ML SYRINGE ONE ×3 (08:46→09:49)
[2020-10-17] MEDS ORDERED: Ketorolac Tromethamine 30 MG/ML VIAL ONE (09:26)
[2020-10-17] MEDS ORDERED: Lidocaine 1% PF 5 ML VIAL ONE (09:26)
[2020-10-17] MEDS ORDERED: Lidocaine 1.5% w/Epi 1:200K 30 ML VIAL (Epid Use) ONE (09:26)
[2020-10-17] MEDS ORDERED: Dexamethasone 20 MG/5 ML VIAL ONE (09:26)
[2020-10-17] MEDS ORDERED: Rocuronium Bromide 10 MG/ML (10ML VIAL) ONE (09:26)
[2020-10-17] MEDS ORDERED: PROPOFOL 200 MG/20 ML VIAL ONE (09:26)
[2020-10-17] MEDS ORDERED: Glycopyrrolate 0.2 MG/ML 5 ML SYRINGE ONE (09:26)
[2020-10-17] MEDS ORDERED: Ondansetron PF 4 MG/2 ML Vial ONE (09:26)
[2020-10-17] MEDS ORDERED: Vancomycin HCl 1.5 GM in Sodium Chloride 0.9% 250 ML 300 ML IVPB SCH (09:30)
[2020-10-17 14:50] VITALS: BMI 29.4
[2020-10-17] MEDS: CEFAZOLIN 2 GM in Premix Bag 1 BAG IVPB SCH ×2 (15:25→23:46)
[2020-10-17] MEDS: Ketorolac Tromethamine 30 MG/ML VIAL IVP SCH ×3 (15:32→23:46)
[2020-10-17] MEDS: Aspirin 81 mg Enteric Coated Tablet PO SCH (20:22)
[2020-10-18] MEDS: Ketorolac Tromethamine 30 MG/ML VIAL IVP SCH ×3 (05:37→17:25)
[2020-10-18] MEDS: Aspirin 81 mg Enteric Coated Tablet PO SCH ×2 (08:27→20:26)
[2020-10-18] MEDS ORDERED: FLU VACC QS2020-21(6MOS UP)/PF 60 MCG/0.5 ML SYRINGE IM ONE (09:00)
[2020-10-18 09:25] LABS: #Eosinphils 0.1 thou/uL (0.0-0.7); #Lymphocytes 2.5 thou/uL (1.20-3.40); #Monocytes 0.7 thou/uL (0.11-0.59); #Neutrophils 6.3 thou/uL (1.40-6.50); %Basophils 0.4 % (0.0-1.0); %Eosinophils 1.2 % (0.0-10.0); %Lymphocytes 25.8 % (21.0-51.0); %Neutrophils 65.7 % (42.0-75.0); Hemoglobin 12.2 g/dL (14.0-18.0); Mean Corpuscular HGB CONC 33.7 g/dL (32.0-36.0); Mean Corpuscular Hemoglobin 33.9 pg (27.0-31.0); Platelet Count 169 thou/uL (130-400); RBC Distribution Width 12.4 % (11.5-14.5); Red Blood Cell (RBC) Count 3.59 mill/uL (4.70-6.10); White Blood Cell (WBC) Count 9.6 thou/uL (4.8-10.8)
[2020-10-18] MEDS: HYDROcodone/Acetaminophen 5/325 mg Tablet PO PRN (17:24)
[2020-10-19] MEDS: Ketorolac Tromethamine 30 MG/ML VIAL IVP SCH ×2 (00:16→05:43)
[2020-10-19 05:06] LABS: #Eosinphils 0.2 thou/uL (0.0-0.7); #Lymphocytes 1.8 thou/uL (1.20-3.40); #Monocytes 0.9 thou/uL (0.11-0.59); #Neutrophils 5.3 thou/uL (1.40-6.50); %Basophils 0.6 % (0.0-1.0); %Lymphocytes 21.3 % (21.0-51.0); %Monocytes 10.5 % (0.0-10.0); %Neutrophils 64.7 % (42.0-75.0); Hemoglobin 12.2 g/dL (14.0-18.0); Mean Corpuscular HGB CONC 34.2 g/dL (32.0-36.0); Mean Corpuscular Hemoglobin 33.8 pg (27.0-31.0); Platelet Count 164 thou/uL (130-400); RBC Distribution Width 12.3 % (11.5-14.5); White Blood Cell (WBC) Count 8.2 thou/uL (4.8-10.8)
[2020-10-19] MEDS: HYDROcodone/Acetaminophen 5/325 mg Tablet PO PRN (06:05)
[2020-10-19 07:40] VITALS: BP 127/78; TEMP 98.5
[2020-10-19] MEDS: Aspirin 81 mg Enteric Coated Tablet PO SCH (08:28)
== END 2020-10-19 10:13 | disposition home or self-care (01) | DRG 522 ==
LOC: SURG A 10-17 06:00
PROVIDERS: ADMIT Orthopaedic Surgery; ATTEND Orthopaedic Surgery
PROC: 0SR90JZ Replacement of Right Hip Joint with Synthetic Substitute, Open Approach (ICD-10-PCS; principal; 2020-10-17)
PROC: 0QP604Z Removal of Internal Fixation Device from Right Upper Femur, Open Approach (ICD-10-PCS; 2020-10-17)
DX: S72.001K Fracture of unspecified part of neck of right femur, subsequent encounter for closed fracture with nonunion (principal); Z20.822 Contact with and (suspected) exposure to COVID-19; F17.210 Nicotine dependence, cigarettes, uncomplicated; I10 Essential (primary) hypertension; E78.5 Hyperlipidemia, unspecified; X58.XXXD Exposure to other specified factors, subsequent encounter
CPT/HCPCS: 36415; 72170; 85025; 85027; 87081; 87635; C1776; J0690; J1100; J1885; J2001; J2250; J2405; J2704; J3010; S0020; S0028; U0003; U0005

== ENCOUNTER 2020-10-14 10:49 | Outpatient (CLI) | payer BC ==
[2020-10-14 11:45] LABS: Hemoglobin 17.6 g/dL (13.5-17.5); Mean Corpuscular HGB CONC 33.5 g/dL (32.0-36.0); Mean Corpuscular Volume 95.5 fl (81.2-95.1); Mean Platelet Volume 9.3 fl (7.4-10.4); Platelet Count 248 10x3/uL (150-450); RBC Distribution Width 13.1 % (11.5-14.5); White Blood Cell (WBC) Count 7.4 10x3/uL (3.5-10.5)
[2020-10-14 19:07] LABS: SARS-CoV-2 PCR by NAA Not Detected (NotDetected)
== END 2020-10-14 10:50 | disposition home or self-care (01) ==
LOC: LABBT 10:49
PROVIDERS: ATTEND Orthopaedic Surgery
DX: Z01.812 Encounter for preprocedural laboratory examination (principal); S72.001S Fracture of unspecified part of neck of right femur, sequela; Z20.822 Contact with and (suspected) exposure to COVID-19
CPT/HCPCS: 85027; 87081; 87635; U0003; U0005